=== PATIENT | female | born 2000 | race Caucasian/White ===

== ENCOUNTER → 2024-10-14 | Outpatient (CLI) | payer BC, SELFPAY ==
--- NOTE | 2024-10-14 | CYST_PTH ---
PATIENT: DAX RAINEY LOC: [facility] U#:[id number] AGE/SX: 24/F ROOM: RE10/14/[address]: Dr. Joni Singh MD : 2000 BED: DIS: 10/14/2024 SPEC #: [id number] RECD: 10/14/24 16:07 STATUS: KIRSTIN EVANSBon #: [id number] RIO: 10/14/24 00:[address]: Joni Singh DEPT: SURGICAL PATHOLOGY RECD BY: Dany Cast Tissues: CYST Procedures: Special Stain Group I Surgery Specimen Level III GMS Stain (control) HEADER OPERATION: Right ear cyst PRE-OP DIAGNOSIS: Right ear cyst TISSUE SUBMITTED: Right earlobe cyst MICROSCOPIC DIAGNOSIS Right ear cyst: Inflamed polypoid and papillary granulation tissue formation/pyogenic granuloma arising in background of apparent epidermal inclusion cyst. See comment. 10/18/2024 COMMENT PAS stain for fungus is used in the evaluation of this case and is negative for fungal organisms with appropriate control. Case has been reviewed in consultation with Dr. Royal who concurs with the above diagnosis. IDC:SJ MICROSCOPIC DESCRIPTION Slides are reviewed. GROSS DESCRIPTION Received in fixative is one container labeled with the patient's name and designated Right earlobe cyst. The specimen consists of a polypoid piece of renee-white skin measuring 2 x 1 x 1cm. The specimen is inked, serially sectioned and submitted entirely in two cassettes. 10/15/2024 TC: CPT:[id number]
== END | disposition home or self-care (01) ==
LOC: LABSPEC 16:09
PROVIDERS: Referring Provider Surgery Plastic and Reconstructive Surgery; Visit Provider Surgery Plastic and Reconstructive Surgery
DX: Q18.1 Preauricular sinus and cyst (principal)
CPT/HCPCS: 88304; 88312